=== PATIENT | female | born 1975 | race Caucasian/White ===

== ENCOUNTER → 2017-11-17 | Outpatient (CLI) | payer OTHER | END | disposition home or self-care (01) | LOC: CFH 09:23 | PROVIDERS: ATTEND Obstetrics & Gynecology | DX: Z12.31 Encounter for screening mammogram for malignant neoplasm of breast (principal) | CPT/HCPCS: 77063; 77067 ==

== ENCOUNTER 2017-11-23 05:36 | Day surgery (SDC) | payer OTHER ==
[2017-11-21 12:00] VITALS: BP 113/77
[2017-11-21 12:32] LABS: BASOPHILS # (AUTO) 0.01 x10^3/uL (0-0.1); BASOPHILS % (AUTO) 0 % (0-1); EOSINOPHILS # (AUTO) 0.05 x10^3/uL (0-0.4); EOSINOPHILS % (AUTO) 1 % (1-7); LYMPHOCYTES % (AUTO) 33 % (22-44); MD NO; MEAN CORPUSCULAR HEMOGLOBIN 28.6 pg (27.0-34.8); MEAN CORPUSCULAR HGB CONC 33.4 g/dL (32.4-35.8); MEAN CORPUSCULAR VOLUME 85.6 fL (80-100); MEAN PLATELET VOLUME 8.1 fL (7.4-10.4); MONOCYTES # (AUTO) 0.36 x10^3/uL (0.2-0.8); MONOCYTES % (AUTO) 6 % (2-9); NEUTROPHILS # (AUTO) 3.79 x10^3/uL (1.8-6.8); NEUTROPHILS % (AUTO) 60 % (42-75); PLATELET COUNT 238 x10^3/uL (130-400); RED CELL DISTRIBUTION WIDTH 13.5 % (9.6-15.2)
[2017-11-21 12:33] LABS: HCG UR SG 1.011 (1.003-1.030); MICROSCOPIC NOT IND
[2017-11-21 12:39] LABS: CULTURE INDICATED? NO
[~2017-11-23] VITALS: Ht 167.6 cm; Wt 62.0 kg
[~2017-11-23 05:36] MED LIST: LACT1CAP35 PO
[2017-11-23] MEDS: LACTATED RINGERS 1,000 ML IV SCH ×2 (06:20→06:28)
[2017-11-23] MEDS ORDERED: ACETAMINOPHEN 500 MG TABLET PO ONE (06:30)
[2017-11-23] MEDS ORDERED: BUPIVACAINE/PF-EPI 0.5% 1:200K ONE (06:44)
[2017-11-23] MEDS ORDERED: SCOPOLAMINE PATCH, 1.5MG PATCH.TD72 TD ONE ×2 (07:27)
[2017-11-23] MEDS ORDERED: MIDAZOLAM 1 MG/ML, 2ML ONE (07:31)
[2017-11-23] MEDS ORDERED: FENTANYL PF 250 MCG/5ML ONE (07:31)
[2017-11-23] MEDS ORDERED: DEXAMETHASONE 4 MG/ML, 1ML ONE (07:32)
[2017-11-23] MEDS ORDERED: ROCURONIUM 10 MG/ML,10ML ONE (07:32)
[2017-11-23] MEDS ORDERED: NEOSTIGMINE 1 MG/ML, 10ML ONE (07:32)
[2017-11-23] MEDS ORDERED: GLYCOPYRROLATE 0.2MG/1ML, 5ML ONE (07:32)
[2017-11-23] MEDS ORDERED: ONDANSETRON 2MG/ML, 2ML ONE (07:32)
[2017-11-23] MEDS ORDERED: PROPOFOL 10 MG/ML, 20ML ONE (07:32)
[2017-11-23] MEDS ORDERED: CEFAZOLIN 1,000 MG ONE (07:32)
[2017-11-23] MEDS ORDERED: HYDROmorphone 1 MG/ML, 1ML IV PRN (08:30)
[2017-11-23] MEDS ORDERED: LORazepam 2 MG/ML, 1ML IVPush PRN (08:30)
[2017-11-23] MEDS ORDERED: ALBUTEROL SULFATE 2.5 MG/3 ML NPPB PRN (08:30)
[2017-11-23] MEDS ORDERED: OXYcodone 5 MG/5 ML ORAL.SOL UDC PO PRN (08:30)
[2017-11-23] MEDS ORDERED: MEPERIDINE/PF 25MG/0.5ML IVPush PRN (08:30)
[2017-11-23] MEDS ORDERED: PROMETHAZINE 25 MG/ML, 1ML IV PRN (08:30)
[2017-11-23] MEDS ORDERED: FENTANYL PF 100 MCG/2ML IV PRN (08:30)
[2017-11-23] MEDS ORDERED: LABETALOL 5MG/ML, 20ML IV PRN (08:30)
[2017-11-23] MEDS ORDERED: hydrALAzine 20 MG/ML, 1ML IV PRN (08:30)
== END 2017-11-23 10:40 | disposition home or self-care (01) ==
LOC: OUT 05:36
PROVIDERS: ATTEND Obstetrics & Gynecology
DX: N83.12 Corpus luteum cyst of left ovary (principal); N83.11 Corpus luteum cyst of right ovary
CPT/HCPCS: 36415; 58662; 81003; 81025; 85025; 86850; 86900; 88305; J0690; J1100; J2250; J2405; J2704; J2710; J3010; J3490; J7120

== ENCOUNTER 2019-03-26 09:58 | Outpatient (CLI) | payer OTHER | END 2019-03-26 23:59 | disposition home or self-care (01) | LOC: CFH 09:58 | PROVIDERS: ATTEND Obstetrics & Gynecology | DX: Z12.31 Encounter for screening mammogram for malignant neoplasm of breast (principal); N64.89 Other specified disorders of breast | CPT/HCPCS: 76641; 77063; 77067 ==